=== PATIENT | male | born 1975 | race Hispanic/Latino ===

== ENCOUNTER 2020-09-14 14:28 | Emergency (ER) | payer OTHER ==
[~2020-09-14] VITALS: Ht 162.6 cm; Wt 87.5 kg
[2020-09-14 14:29] VITALS: BP 132/86
[2020-09-14] MEDS ORDERED: METH10TA2 PO (14:47)
== END 2020-09-14 15:52 | disposition home or self-care (01) ==
LOC: M ED 14:28
DX: Z20.828 Contact with and (suspected) exposure to other viral communicable diseases (principal); F11.20 Opioid dependence, uncomplicated; F17.200 Nicotine dependence, unspecified, uncomplicated
CPT/HCPCS: 99283; U0003